=== PATIENT | male | born 1940 | race Caucasian/White ===

== ENCOUNTER 2016-10-22 12:47 | Emergency (ER) | payer OTHER, MEDICARE ==
[~2016-10-22] VITALS: Ht 175.3 cm; Wt 1181.6 kg
--- NOTE | 2016-10-22 13:40 | ED GI/GU/ABDOMINAL COMPLAINT ---
History of Present Illness General Chief Complaint: Abdominal Pain/Flank Pain Stated Complaint: ABD PAIN Source: patient, family, old records Exam Limitations: poor historian Allergies Coded Allergies: No Known Allergies (10/22/16) Reconcile Medications Acetaminophen 500 MG TABLET 1-2 TAB PO Q6 PAIN Ezetimibe (Zetia) 10 MG TABLET 10 MG PO DAILY HYPERTENSION (Reported) Hyoscyamine (Levsin) 0.125 MG TABLET 1 TAB PO Q6 URINARY FREQUENCY, PAIN Metoprolol Succinate 25 MG TAB 25 MG PO DAILY HYPERTENSION (Reported) Pitavastatin Calcium (Livalo) 4 MG TABLET 4 MG PO DAILY HYPERTENSION ( Reported) Triage Note: TRIAGE: 76 Y/O MALE PRESENTS C/O 12/15 UPPER ABDOMINAL PAIN SINCE YESTERDAY. REPORTS LAST BOWEL MOVEMENT YESTERDAY. REPORTS URINARY FREQUENCY. Triage Nurses Notes Reviewed? yes Onset: Abrupt Duration: day(s): (-7), changing over time, continues in ED, getting worse, intermittent Timing: single episode today Quality/Severity: dullness, fullness, moderate Severity Numbers: 4 Location: generalized abdomen Radiation: no radiation Activities at Onset: rest Prior Abdominal Problems: none Past Sexual History: Unobtainable at this time No Modifying Factors: none Modifying Factors: Improves With: exercise. Worsens With: rest. Associated Symptoms: abdominal pain, polyuria, urinary frequency HPI: 76-year-old male history of hypertension hyperlipidemia coronary artery disease presents for evaluation of lower abdominal pain urinary frequency and bloating for the past week. Patient reports in the last 7 days symptoms have been intermittent. Pain is located in the lower abdomen and does not radiate. Patient discussed the pain as a fullness or bloating. Pain is currently rated as a 4 out of 10. Patient states that the pain has gradually been worsening starting yesterday. Patient does report that the pain will go away completely at times. Pain is worse with rest and improves with any type of physical activity. He is eating and drinking normally. Additionally patient reports some difficulty urinating urinary frequency and urinary urgency. No dysuria hematuria or penile discharge. Additionally patient reports bloating and increased gas. Patient reports he tried taking milk of magnesia without any improvement. He denies any history of previous symptoms. (PHIL ALCAZAR PA-C) Vital Signs & Intake/Output Vital Signs & Intake/Output Vital Signs Date Time Temp Pulse Resp B/P B/P Pulse O2 O2 Flow FiO2 Mean Ox Delivery Rate 10/22 1800 98.0 69 15 145/74 100 Room Air 10/22 1640 97.5 81 16 158/70 95 Room Air 10/22 1504 98.4 84 18 181/81 98 Room Air 10/22 1258 98.2 88 18 144/75 97 Room Air Room Air ED Intake and Output 10/23 0000 10/22 1200 Intake Total Output Total Balance Patient 2605 lb Weight Weight Reported by Patient Measurement Method Past History Travel History Traveled to [place] past 21 day No Medical History Any Pertinent Medical History? see below for history Cardiovascular: CAD, hypertension, hyperlipidemia Surgical History Surgical History: none Psychosocial History What is your primary language Pashto Tobacco Use: Quit <30 days ago ETOH Use: denies use Illicit Drug Use: denies illicit drug use Family History Hx Contributory? No (PHIL ALCAZAR PA-C) Review of Systems Review of Systems Constitutional: Reports: no symptoms. EENTM: Reports: no symptoms. Respiratory: Reports: no symptoms. Cardiovascular: Reports: no symptoms. GI: Reports: see HPI, abdominal pain. Genitourinary: Reports: see HPI, frequency, urgency. Musculoskeletal: Reports: no symptoms. Skin: Reports: no symptoms. Neurological/Psychological: Reports: no symptoms. Hematologic/Endocrine: Reports: no symptoms. Immunologic/Allergic: Reports: no symptoms. All Other Systems: Reviewed and Negative (PHIL ALCAZAR PA-C) Physical Exam Physical Exam General Appearance: well developed/nourished, no apparent distress, alert, awake Head: atraumatic Eyes: Bilateral: normal appearance, PERRL, EOMI, normal inspection. Ears, Nose, Throat, Mouth: hearing grossly normal, moist mucous membrane, Tympanic normal Neck: normal inspection, supple, full range of motion Respiratory: normal breath sounds, chest non-tender, no respiratory distress, lungs clear Cardiovascular: regular rate/rhythm, normal peripheral pulses Peripheral Pulses: 2+ dorsalis pedis (R), 2+ dorsalis pedis (L) Gastrointestinal: normal bowel sounds, soft, tenderness (LLQ, RLQ) Rectal: normal inspection, normal rectal tone, heme negative stool, mildly enlarged prostate Back: normal inspection, normal range of motion, no vertebral tenderness Extremities: normal range of motion Neurologic/Psych: no motor/sensory deficits, awake, alert, oriented x 3, normal gait, normal mood/affect Skin: intact, normal color, warm/dry Core Measures ACS in differential dx? No Severe Sepsis Present: No Septic Shock Present: No (INGE EDWARDS,PHIL) Progress Differential Diagnosis: AMI, appendicitis, biliary colic, bowel obstruction, colon cancer, cholecystitis, diverticulitis, epididymitis, gastritis, inflamm bowel dis, pancreatitis, prostatitis, peptic ulcer, PUD/GERD, pyelonephritis, SBO, ureterolithiasis, urinary retention, urethritis, UTI/pyelo Initial ED EKG: normal axis, normal intervals, normal p-waves, normal QRS complex, normal sinus rhythm, no ST T wave changes, NSR, 1st degree AV block, possible inferior infarct, age unknown, no acute ST or T wave changes Comments: PATIENT: MEAGAN MURCIA PRESENT AGE: 76 PATIENT ACCOUNT NO: [id number] : 38 LOCATION: [facility] ORDERING PHYSICIAN: PHIL ALCAZAR PA-C SERVICE DATE: 10/22/16 EXAM TYPE: CAT - CT ABD & PELVIS W IV CONTRAST EXAMINATION: CT ABDOMEN AND PELVIS WITH CONTRAST CLINICAL INFORMATION: Lower abdominal pain. Distention. COMPARISON: None TECHNIQUE: Multidetector volumetric imaging was performed of the abdomen and pelvis before and after the IV administration of 95 mL of Optiray 320 intravenous contrast. Sagittal and coronal reformatted images were obtained on the technologist's workstation. DLP: 1102 mGy-cm FINDINGS: LUNG BASES: There is minimal focal atelectatic changes left lung base. The heart size is normal. LIVER, GALLBLADDER, AND BILIARY TREE: The liver is normal in size, shape, and attenuation. No focal hepatic lesion or biliary ductal dilatation is present. The gallbladder is unremarkable with no evidence of radiopaque gallstones, gallbladder wall thickening, or obvious pericholecystic inflammatory changes. PANCREAS: Unremarkable. SPLEEN: Unremarkable. ADRENAL GLANDS: Unremarkable. KIDNEYS AND URETERS: There is a 4.6 cm and a 1.7 cm cyst in midpole right kidney. There is a 1 cm exophytic lesion lower pole right kidney. It is too small to correctly characterize. No radiopaque calculi or hydronephrosis seen in either kidney. BLADDER: There is no bladder wall thickening. The prostate gland is normal size. GASTROINTESTINAL TRACT: There is scattered stool seen throughout the colon without significant distention. The small-bowel loops are normal caliber. Appendix is not visualized. There is no obstruction, free air or free fluid. ABDOMINAL WALL: There is an epigastric small hernia containing intraperitoneal fat. There is infraumbilical abdominal wall mesh from previous hernia repair. LYMPH NODES: Normal. VASCULAR: Atherosclerotic calcification of nondilated abdominal aorta is noted. PELVIC VISCERA: There is no free air or free fluid. The prostate gland is mildly enlarged. OSSEOUS STRUCTURES: There are degenerative disc changes L4-L5, L3-L4, L2-L3 and L1-L2 disc levels with moderate ventral spondylosis. No lytic process seen. IMPRESSION: No acute intra-abdominal process seen. There is epigastric anterior abdominal wall hernia with intraperitoneal fat within. There are several right renal cysts. (INGE EDWARDS,PHIL) Plan of Care: Orders Procedure Date/time Status EKG 10/22 1355 Active URINALYSIS 10/22 1302 Complete TROPONIN LEVEL 10/22 1302 Complete LIPASE 10/22 1302 Complete C-REACTIVE PROTEIN 10/22 1302 Complete COMPREHENSIVE METABOLIC PANEL 10/22 1302 Complete CBC WITHOUT DIFFERENTIAL 10/22 1302 Complete AMYLASE 10/22 1302 Complete Laboratory Tests 10/22/16 1418: C-Reactive Prot, Quant Cancelled 10/22/16 1416: C-Reactive Prot, Quant Cancelled 10/22/16 1318: Urine Color YEL, Urine Clarity CLEAR, Urine pH 6.0, Ur Specific Telephone 1.010, Urine Protein NEG, Urine Ketones NEG, Urine Nitrite NEG, Urine Bilirubin NEG, Urine Urobilinogen 0.2, Ur Leukocyte Esterase NEG, Ur Microscopic EXAM NOT REQUIRED, Urine Hemoglobin NEG, Urine Glucose NEG 10/22/16 1302: Anion Gap 11, Estimated GFR > 60, BUN/Creatinine Ratio 12.5, Glucose 96, Calcium 9.7, Total Bilirubin 0.9, AST 17, ALT 33, Alkaline Phosphatase 105, Troponin I < 0.01, C-Reactive Prot, Quant 1.0, Total Protein 7.2, Albumin 4.1, Globulin 3.1, Albumin/Globulin Ratio 1.3, Amylase 46, Lipase 38, CBC w Diff NO MAN DIFF REQ, RBC 5.58, MCV 87.0, MCH 28.7, RDW 14.8 H, MPV 8.1, Gran % 65.0, Lymphocytes % 19.2 L, Monocytes % 9.7 H, Eosinophils % 5.6 H, Basophils % 0.5, Absolute Granulocytes 4.6, Absolute Lymphocytes 1.4, Absolute Monocytes 0.7 H, Absolute Eosinophils 0.4, Absolute Basophils 0, PUBS MCHC 33.0 2:23 PM: Patient seen and evaluated. He is nontoxic-appearing and afebrile. Basic blood work and urinalysis ordered at triage and is overall within normal limits. Initial EKG is not showing any acute ischemic changes at this time. Troponin, CRP and CT that and pelvis with IV contrast ordered. Will follow up on results. Patient currently refuses any pain medication. 5:32 PM: CAT scan is back and shows no acute abdominal process. Blood work and urinalysis are both within normal limits. Patient's prostate is mildly enlarged and had most of his symptoms may be related to BPH. Patient will be discharged home on Levsin and Tylenol. Refer to urology and will follow-up with his primary care doctor this week. Reviewed all results with patient and he is in agreement with the plan. Reviewed all previous medical records. He is nontoxic appearing and afebrile at discharge. Case discussed with Dr. Hooker and he is in agreement with the plan. (INGE EDWARDS,PHIL) Departure Departure Disposition: HOME OR SELF CARE Condition: Stable Clinical Impression Primary Impression: Abdominal pain Qualifiers: Abdominal location: generalized Qualified Code: R10.84 - Generalized abdominal pain Secondary Impressions: Urinary frequency Referrals: JEAN-PIERRE CHANDRA,SAMMY GALVAN MD,RADHA (PCP/Family) Additional Instructions: Take Levsin and Tylenol as directed. Follow-up appointment with the urologist. Follow-up with your primary care doctor to review all results of today's visit. Return to the emergency department with any concerns. Please go over all results of today's visit with your primary care doctor. Contact your primary care doctor to let them know you were here in the emergency room. There may be nonspecific findings which may not be related to your visit today here in the emergency room but may require further evaluation and chronic monitoring by your primary care doctor. If you had a laceration today the chance of foreign body always remains. You should follow-up with your primary care doctor for recheck in 3-5 days for a wound check. If you had an x-ray done there is a chance that a fracture could have been missed on initial read and you should follow-up with your primary care doctor for repeat x-rays if symptoms persist. If your blood pressure was elevated here in the emergency room please have rechecked by her primary care doctor within the next 48 hours by your primary care doctor. If you were prescribed a narcotic here in the emergency room or any type of controlled substances you're not allowed to drive while taking this medication or operate any type of heavy machinery. Narcotics can make you feel lightheaded dizziness nausea and can cause constipation. You may need to curing pickling packer a stool softener. Thank you for choosing [facility] emergency room. Please return to the emergency room immediately if you have any other concerns worsening of symptoms. Departure Forms: Customer Survey General Discharge Information Prescriptions: Current Visit Scripts Hyoscyamine (Levsin) 1 TAB PO Q6 #30 TAB Acetaminophen 1-2 TAB PO Q6 #30 TAB (PHIL ALCAZAR PA-C) PA/DOUBLE END SEWER Co-Sign Statement Statement: ED Attending supervision documentation- [X] I saw and evaluated the patient. I have also reviewed all the pertinent lab results and diagnostic results. I agree with the findings and the plan of care as documented in the PA's/DOUBLE END SEWER's documentation. [] I have reviewed the ED Record and agree with the PA's/DOUBLE END SEWER's documentation. [] Additions or exceptions (if any) to the PAs/DOUBLE END SEWER's note and plan are summarized below: [] (LIVIA CHANDRA,TRES Powell)
[2016-10-22 13:51] LABS: ABSOLUTE BASOPHIL COUNT 0 /CUMM (0.0-0.2); ABSOLUTE EOSINOPHIL COUNT 0.4 /CUMM (0.0-0.7); ABSOLUTE GRANULOCYTE CT 4.6 /CUMM (1.4-6.5); ABSOLUTE LYMPH COUNT 1.4 /CUMM (1.2-3.4); ABSOLUTE MONOCYTE COUNT 0.7 /CUMM (0.10-0.60); BASOPHIL % 0.5 % (0.0-2.0); EOSINOPHIL % 5.6 % (0-5); HEMATOCRIT 48.5 % (42-52); MEAN CORPUSCULAR HGB 28.7 PG (27.0-31.0); MEAN PLATELET VOLUME 8.1 FL (7.4-10.4); PLATELET COUNT 212 /CUMM (130-400); RBC DISTRIBUTION WIDTH 14.8 % (11.5-14.5); RED BLOOD CELL CT 5.58 /CUMM (4.70-6.10)
[2016-10-22] MEDS ORDERED: METOPROLOL SUCC25 M1 PO (15:09)
[2016-10-22] MEDS ORDERED: ZETIA10 M1 PO (15:09)
[2016-10-22] MEDS ORDERED: LIVALO4 M1 PO (15:10)
--- NOTE | 2016-10-22 17:20 | CT SCAN REPORT ---
EXAMINATION: CT ABDOMEN AND PELVIS WITH CONTRAST CLINICAL INFORMATION: Lower abdominal pain. Distention. COMPARISON: None TECHNIQUE: Multidetector volumetric imaging was performed of the abdomen and pelvis before and after the IV administration of 95 mL of Optiray 320 intravenous contrast. Sagittal and coronal reformatted images were obtained on the technologist's workstation. DLP: 1102 mGy-cm FINDINGS: LUNG BASES: There is minimal focal atelectatic changes left lung base. The heart size is normal. LIVER, GALLBLADDER, AND BILIARY TREE: The liver is normal in size, shape, and attenuation. No focal hepatic lesion or biliary ductal dilatation is present. The gallbladder is unremarkable with no evidence of radiopaque gallstones, gallbladder wall thickening, or obvious pericholecystic inflammatory changes. PANCREAS: Unremarkable. SPLEEN: Unremarkable. ADRENAL GLANDS: Unremarkable. KIDNEYS AND URETERS: There is a 4.6 cm and a 1.7 cm cyst in midpole right kidney. There is a 1 cm exophytic lesion lower pole right kidney. It is too small to correctly characterize. No radiopaque calculi or hydronephrosis seen in either kidney. BLADDER: There is no bladder wall thickening. The prostate gland is normal size. GASTROINTESTINAL TRACT: There is scattered stool seen throughout the colon without significant distention. The small-bowel loops are normal caliber. Appendix is not visualized. There is no obstruction, free air or free fluid. ABDOMINAL WALL: There is an epigastric small hernia containing intraperitoneal fat. There is infraumbilical abdominal wall mesh from previous hernia repair. LYMPH NODES: Normal. VASCULAR: Atherosclerotic calcification of nondilated abdominal aorta is noted. PELVIC VISCERA: There is no free air or free fluid. The prostate gland is mildly enlarged. OSSEOUS STRUCTURES: There are degenerative disc changes L4-L5, L3-L4, L2-L3 and L1-L2 disc levels with moderate ventral spondylosis. No lytic process seen. IMPRESSION: No acute intra-abdominal process seen. There is epigastric anterior abdominal wall hernia with intraperitoneal fat within. There are several right renal cysts.
[2016-10-22] MEDS ORDERED: ACETAMINOPHEN500 M4 PO (17:43)
[2016-10-22] MEDS ORDERED: LEVSIN0.125 M1 PO (17:43)
[2016-10-22 18:00] VITALS: BP 145/74
== END 2016-10-22 18:01 ==
LOC: ERH 12:47
PROVIDERS: Emergency Medicine
DX: R10.31 Right lower quadrant pain (principal); R10.32 Left lower quadrant pain; R35.0 Frequency of micturition
CPT/HCPCS: 74177; 81003; 93005; 93010